=== PATIENT | male | born 1950 | race Two or more races ===

== ENCOUNTER 2017-07-19 22:58 | Emergency (ER) | payer MEDICARE, BC ==
[~2017-07-19] VITALS: Ht 175.3 cm; Wt 111.1 kg
[~2017-07-19 22:58] MED LIST: ALPRAZOLAM0.5 MG PO; AMBIEN10 MG PO; PROZAC20 MG PO
--- NOTE | 2017-07-19 23:14 | Emergency Room Report ---
History of Present Illness General Chief Complaint: Upper Extremity Injury Source: Patient Present Illness HPI Patient is a 66-year-old male presented after increased right shoulder pain. Patient reports an increase pain to his right upper extremity. He reports having a recent fall. Patient said he tripped over his dog and fell forward forcibly moving his upper extremity forward "like superman". He denied loss of consciousness. He reports prior history of anxiety. He stated he felt that it moved back in place Allergies: Coded Allergies: No Known Allergies (Verified Allergy, Unknown, 10/02/07) Patient History Reviewed Nursing Documentation: PMH: Agreed, PSxH: Agreed Nursing Documentation-PM Past Medical History: No History, Except For Hx Cardiac Problems: Yes - A. fib. Hx Hypertension: Yes - Borderline Hx Cancer: No Hx Gastrointestinal Problems: Yes Hx Neurological Problems: No Review of Systems All Other Systems: negative except mentioned in HPI Physical Exam Vital Signs Date Time Temp Pulse Resp B/P (MAP) Pulse Ox O2 Delivery O2 Flow Rate FiO2 07/19/17 23:02 97.9 67 16 148/85 99 Room Air General Appearance: well appearing, no apparent distress, alert, GCS 15 Head: normocephalic, atraumatic ENT: hearing grossly normal, normal voice Neck: full range of motion, supple Respiratory: lungs clear, normal breath sounds, no rhonchi, no respiratory distress, speaking full sentences Musculoskeletal: normal inspection, no calf tenderness Neurologic: normal inspection, alert, oriented x3, responsive, kettle chipper III-XII nml as tested, normal gait Psychiatric: mood/affect normal Skin: no rash Medical Decision Making Diagnostic Impression: Primary Impression: Proximal humeral fracture ER Course Patient presented for shoulder pain. Differential diagnoses included was not limited to fracture, dislocation, a.c. separation, septic joint. X-ray imaging of the right shoulder 4 views interpreted by me showed a minimally displaced fracture to the proximal humerus. The patient was placed in a sling. He was given prescription for pain medications. the patient was advised followup with orthopedics. The patient is advised to follow up with primary care doctor in 1-2 days for orthopedic referral. Patient is advised to return if any worsening condition or if any changes in status that are concerning. This report is dictated with [employer] agent software which may occasionally lead to discrepancies related to use of this software. Other X-Ray Diagnostic Results Other X-Ray Diagnostic Results : # of Views/Limited Vs Complete: 4 View Indication: Pain EP Interpretation: Yes PA Xray: Interpretation reviewed Interpretation: no soft tissue swelling, other - proximal humerus fracture Last Vital Signs Date Time Temp Pulse Resp B/P (MAP) Pulse Ox O2 Delivery O2 Flow Rate FiO2 07/19/17 23:02 97.9 67 16 148/85 99 Room Air Status: improved Scripts Ibuprofen* (MOTRIN*) 600 Mg Tablet 600 MG ORAL Q8H Y for For Pain, #30 TAB 0 Refills Prov: Diomedes Jules 07/19/17 Hydrocodone Bit/Acetaminophen 5-325* (NORCO 5-325*) 1 Each Tablet 1 TAB ORAL Q6H Y for For Pain, #20 TAB 0 Refills Prov: Diomedes Jules 07/19/17 Diomedes Jules Jul 19, 2017 23:14
[2017-07-19] MEDS ORDERED: NORCO 5-325 TA1 EACH ORAL (23:37)
[2017-07-19] MEDS ORDERED: IBUPROFEN600 MG ORAL (23:37)
[2017-07-19] MEDS ORDERED: Norco 5mg/325mg tab ORAL ONE (23:45)
[2017-07-19 23:55] VITALS: BP_SYST 147; BP_SYST 148; BP_DIAS 72; BP_DIAS 85
--- NOTE | 2017-07-20 21:47 | Diagnostic Imaging Report ---
Indication: Right shoulder pain Findings: 3 views of the right shoulder were obtained. Fracture of the greater tuberosity of the right humerus demonstrated. There is a transverse fracture of the high humeral neck suspected as well. This may involve the anatomic neck. There is no malalignment. IMPRESSION: Acute fracture of the greater tuberosity of the humerus. Suspected fracture of the high neck of the humerus possibly at the anatomic neck. Consider CT to evaluate further.
== END 2017-07-20 00:15 | disposition home or self-care (01) ==
LOC: EMR 23:10
DX: S42.251A Displaced fracture of greater tuberosity of right humerus, initial encounter for closed fracture (principal); W01.0XXA Fall on same level from slipping, tripping and stumbling without subsequent striking against object, initial encounter; Y92.89 Other specified places as the place of occurrence of the external cause; I10 Essential (primary) hypertension; I48.91 Unspecified atrial fibrillation
CPT/HCPCS: 99283